=== PATIENT | female | born 1995 | race Caucasian/White ===

== ENCOUNTER 2017-02-17 14:47 | Emergency (ER) | payer OTHER ==
[~2017-02-17 14:47] MED LIST: BACTRIM DS TABL1 TA1 PO; BACTRIM DS TABL1 TA2 PO; BACTROBAN22 GM TOP; BIRTH CONTROL PILL; IBUPROFEN800 MG; NO MEDICATIONS; ZITHROMAX
[2017-02-17 15:39] LABS: URINE APPEARANCE CLEAR; URINE BILIRUBIN NEG (NEG); URINE BLOOD NEG (NEG); URINE COLOR YELLOW; URINE GLUCOSE NEG (NORM); URINE KETONE NEG (NEG); URINE LEUKOCYTE ESTERASE 3+ (NEG); URINE NITRATE NEG (NEG); URINE PROTEIN NEG (NEG); URINE SOURCE CLEAN CATCH; URINE SPECIFIC GRAVITY 1.015 (1.003-1.035)
[2017-02-17 15:40] LABS: MICRO INDICATED? YES
[2017-02-17 15:46] LABS: URINE BACTERIA 1+ (NEG); URINE RBC 0-2 /[HPF] (0-2)
[2017-02-17 15:47] LABS: URINE SQUAMOUS EPITHELIAL CELL FEW /[HPF]
[2017-02-20 11:45] LABS: CHLAMYDIA TRACH Not Detected (Not Detected); N GONOR Not Detected (Not Detected)
== END 2017-02-17 16:59 | disposition home or self-care (01) ==
LOC: SED 14:47
PROVIDERS: Emergency Medicine
DX: R10.2 Pelvic and perineal pain (principal); Z86.19 Personal history of other infectious and parasitic diseases; F17.200 Nicotine dependence, unspecified, uncomplicated
CPT/HCPCS: 81003; 84703; 87491; 87591; 87808; 87905; 96372; 99284; J0696